=== PATIENT | female | born 1990 | race Caucasian/White ===

== ENCOUNTER 2018-09-28 10:07 | Emergency (ER) | payer BC, MEDICAID ==
[2018-09-28 10:29] VITALS: BP 112/81
[2018-09-28] MEDS ORDERED: Sodium Chloride 0.9% 1,000 ML IV ONE (10:38)
[2018-09-28] MEDS ORDERED: Ondansetron 4 MG/2 ML SDV IVPUSH ONE (10:47)
--- NOTE | 2018-09-28 11:09 | EDM.PDOC ---
ED HPI GENERAL MEDICAL PROBLEM - General Chief Complaint: General Stated Complaint: OUT OF MEDS Time Seen by Provider: 09/28/18 10:14 Source of Information: Reports: Patient History Limitations: Reports: Other (anxious) - History of Present Illness INITIAL COMMENTS - FREE TEXT/NARRATIVE: 28 y.o.w.f with H/O Heroin addiction, in withdrawal, came to the ed requesting Suboxone. Pt had an appointment at [facility] in [place] last Rafal, which she missed. Now, she ran out of meds. Our pharmacy does not carry Suboxone. Pt called the addiction clinic today. She did not get an appointment today. Pt is extremely anxious, she vomited yesterday "all day long" and today 4 times. Her mein concern is N/V and unable to eat. No Cp or SOB. There was no family member. BP 112/89 RR 18 Pulse ox 99% on RA Temp 36.6 Pulse 112 Onset: Unknown/Unsure Onset Date: 09/24/18 Onset Time: 08:00 Duration: Week(s):, Intermittent, Waxing/Waning Location: Reports: Generalized Quality: Reports: Same as Previous Episode Severity: Moderate Improves with: Reports: Medication Worsens with: Reports: Movement (H/O heroin addiction) Associated Symptoms: Reports: Other (H/O heroin addiction) Generalized Pain Score (Numeric/FACES): 4 - Related Data Allergies Allergy/AdvReac Type Severity Reaction Status Date / Time No Known Allergies Allergy Verified 09/28/18 10:20 Home Meds: Home Meds QUEtiapine [SEROquel XR] 300 mg BEDTIME 06/27/14 [History] Buprenorphine HCl/Naloxone HCl [Buprenorphin-Naloxon 8-2 mg Sl] 1 each SL DAILY 09/28/18 [History] Past Medical History 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 Neurological History: Reports: Migraines, Seizure Other Neuro History: hx seizures Psychiatric History: Reports: Anxiety, Dementia, Mood Swings, Panic Attack, Psych Hospitalization(s), Suicide Attempt - Past Surgical History HEENT Surgical History: Reports: Adenoidectomy, Oral Surgery, Tonsillectomy Female Surgical History: Reports: Other (See Below) Other Female Surgeries/Procedures: breast augmentation Neurological Surgical History: Reports: None Social & Family History - Family History Family Medical History: Noncontributory - Tobacco Use Smoking Status *Q: Current Every Day Smoker Years of Tobacco use: 13 Packs/Tins Daily: 1 - Caffeine Use Caffeine Use: Reports: Coffee, Energy Drinks, Soda, Tea - Recreational Drug Use Recreational Drug Use: Yes Drug Use in Last 12 Months: Yes Recreational Drug Type: Reports: Heroin, Marijuana/Hashish Other Recreational Drug Type: Last used heroin 2 mo ago, smoked pot last night to help with s/s withdrawl. ED ROS GENERAL - Review of Systems Review Of Systems: See Below Constitutional: Reports: Other (anxious) HEENT: Reports: No Symptoms Respiratory: Reports: No Symptoms Cardiovascular: Reports: No Symptoms Endocrine: Reports: No Symptoms GI/Abdominal: Reports: No Symptoms : Reports: No Symptoms Musculoskeletal: Reports: No Symptoms Skin: Reports: No Symptoms Neurological: Reports: No Symptoms Psychiatric: Reports: Agitation, Anxiety Hematologic/Lymphatic: Reports: No Symptoms Immunologic: Reports: No Symptoms ED EXAM, GENERAL - Physical Exam Exam: See Below Exam Limited By: No Limitations General Appearance: Alert, WD/WN, Anxious, Mild Distress Eye Exam: Bilateral Eye: Normal Inspection Ears: Normal External Exam Ear Exam: Bilateral Ear: Auricle Normal Peripheral Pulses: 2+: Radial (L) GI/Abdominal: Normal Bowel Sounds, Soft (Female) Exam: Deferred Rectal (Female) Exam: Deferred Back Exam: Normal Inspection, Full Range of Motion Extremities: Normal Inspection, Normal Range of Motion, Non-Tender Neurological: Alert, Oriented, CN II-XII Intact, Normal Cognition, Normal Gait Psychiatric: Anxious Skin Exam: Warm, Dry, Intact, Normal Color, No Rash Lymphatic: No Adenopathy Course - Vital Signs Text/Narrative:: 28 y.o.w.f with H/O Heroin addiction, in withdrawal, came to the ed requesting Suboxone. Pt had an appointment at [facility] in [place] last Thursday, which she missed. Now, she ran out of meds. Our pharmacy does not carry Suboxone. Pt called the addiction clinic today. She did not get an appointment today. Pt is extremely anxious, she vomited yesterday "all day long" and today 4 times. Her mein concern is N/V and unable to eat. No Cp or SOB. There was no family member. BP 112/89 RR 18 Pulse ox 99% on RA Temp 36.6 Pulse 112 PE: WNWD W F, anxious Labs: CBC: WBC 12.7 HGB 17.5 HCT 52.6 reminder of her CBC/BMP were neg Impression: Heroin addition, withdrawal. Dehydration Tx: NS. Radhames 10.45 am Consultation: Bernice Arias, [facility]: She will call in Suboxone 3 tablets to [facility] on [address], pt must be seen in the clinic tomorrow. She will not do this favor again. Reexam: Pt requested to leave before the fluid, NS, is finished, because she has to go [place] before work at 1 pm. Her nausea subsided. Plan: D/C with instructions Last Recorded V/S: Last Vital Signs Temp 36.6 C 09/28/18 10:14 Pulse 112 H 09/28/18 10:14 Resp 18 09/28/18 10:14 BP 112/81 09/28/18 10:14 Pulse Ox 97 09/28/18 10:14 - Orders/Labs/Meds Labs: Laboratory Tests 09/28/18 09/28/18 Range/Units 10:46 10:46 WBC 12.5 H (4.5-12.0) X10-3/uL RBC 5.55 H (3.23-5.20) x10(6)uL Hgb 17.5 H (11.5-15.5) g/dL Hct 52.8 H (30.0-51.3) % MCV 95.1 (80-96) fL MCH 31.6 (27.7-33.6) pg MCHC 33.2 (32.2-35.4) g/dL RDW 12.9 (11.5-15.5) % Plt Count 185 (125-369) X10(3)uL MPV 8.9 (7.4-10.4) fL Neut % (Auto) 74.9 (46-82) % Lymph % (Auto) 14.6 (13-37) % Allen % (Auto) 8.8 (4-12) % Eos % (Auto) 1 (1.0-5.0) % Baso % (Auto) 1 (0-2) % Neut # (Auto) 9.4 H (1.6-8.3) # Lymph # (Auto) 1.8 (0.6-5.0) # Allen # (Auto) 1.1 (0.0-1.3) # Eos # (Auto) 0.1 (0.0-0.8) # Baso # (Auto) 0.1 (0.0-0.2) # Sodium 143 (135-145) mmol/L Potassium 4.1 (3.5-5.3) mmol/L Chloride 107 (100-110) mmol/L Carbon Dioxide 23 (21-32) mmol/L BUN 12 (7-18) mg/dL Creatinine 0.8 (0.55-1.02) mg/dL Est Cr Clr Drug Dosing 104.67 mL/min Estimated GFR (MDRD) > 60 (>60) BUN/Creatinine Ratio 15.0 (9-20) Glucose 115 (80-116) mg/dL Calcium 9.1 (8.6-10.2) mg/dL Meds: Medications Discontinued Medications Generic Name Dose Route Start Last Admin Trade Name Freq PRN Reason Stop Dose Admin Sodium Chloride 1,000 mls @ 999 mls/hr 09/28/18 10:38 09/28/18 10:55 Normal Saline IV 09/28/18 11:38 999 mls/hr .BOLUS ONE Administration Ondansetron HCl 8 mg 09/28/18 10:47 09/28/18 10:55 Zofran IVPUSH 09/28/18 10:48 8 mg ONETIME ONE Administration Departure - Departure Time of Disposition: 11:07 Disposition: Home, Self-Care 01 Condition: Good Clinical Impression: Dehydration, Heroin addiction - Discharge Information Instructions: Ondansetron injection, Dehydration, Adult, [id number], Recovering From Addiction Referrals: PCP,None [Primary Care Provider] - Forms: ED Department Discharge Additional Instructions: Bernice Arias called your meds in to the [facility] at [address] 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 Please come back if your symptom get worse acutely.
== END 2018-09-28 11:15 | disposition home or self-care (01) ==
LOC: FB.ED 10:07
DX: E86.0 Dehydration (principal); F11.20 Opioid dependence, uncomplicated; F17.210 Nicotine dependence, cigarettes, uncomplicated
CPT/HCPCS: 36415; 80048; 85025; 96374; 99284; J2405; J7030

== ENCOUNTER 2021-08-26 09:50 | Emergency (ER) | payer SELFPAY ==
[2021-08-26] MEDS ORDERED: Sodium Chloride 0.9% 10 ML Syringe FLUSH PRN (10:37)
[2021-08-26] MEDS ORDERED: LORazepam 2 MG/ML SDV IVPUSH ONE (11:13)
[2021-08-26 11:23] LABS: ACETAMINOPHEN < 2 ug/mL (<2)
[2021-08-26 12:00] VITALS: BP 123/83; PULSE 133
[2021-08-26] MEDS ORDERED: Sodium Chloride 0.9% 1,000 ML IV ONE (12:01)
[2021-08-26] MEDS ORDERED: Sodium Chloride 0.9% 1,000 ML IV SCH (12:15)
== END 2021-08-26 13:00 ==
LOC: FB.ED 09:50
DX: T50.902A Poisoning by unspecified drugs, medicaments and biological substances, intentional self-harm, initial encounter (principal); E86.0 Dehydration; R45.851 Suicidal ideations; R41.0 Disorientation, unspecified; R45.1 Restlessness and agitation; F17.200 Nicotine dependence, unspecified, uncomplicated; Z79.899 Other long term (current) drug therapy; Z20.822 Contact with and (suspected) exposure to COVID-19
CPT/HCPCS: 36415; 80053; 80143; 80179; 80307; 81001; 81025; 83735; 84443; 85025; 87635; 93005; 96374; 99285; J2060; J7030; U0002